=== PATIENT | male | born 1960 | race Caucasian/White ===

== ENCOUNTER 2018-11-08 12:45 | Emergency (ER) | payer MEDICARE, MEDICAID ==
[2018-11-08 13:18] VITALS: BP 166/77
[2018-11-08] MEDS ORDERED: Lidocaine 2.5%/Prilocain 2.5%* 5 GM TUBE TOPICAL ONE (13:27)
--- NOTE | 2018-11-08 13:34 | UC ---
Skin Complaint HPI - HPI Summary HPI Summary: Pt is accompanied by daughter and daughter in law. Pt states he felt something last night on right upper anterior thigh, daughter attempted to remove and was unable to remove last night. Pt and family are concerned that it is a tick. Pt c/o tenderness at bite site. - History of Current Complaint Chief Complaint: UCSkin Time Seen by Provider: 11/08/18 13:13 Stated Complaint: RIGHT LEG SKIN CONCERN - POSS TICK Hx Obtained From: Patient Onset/Duration: Sudden Onset, Still Present Skin Exposure Onset/Duration: Hours Ago Timing: Constant Onset Severity: Mild Current Severity: Mild Pain Intensity: 4 Location: Discrete - right mid anterior thigh Character: Raised, Painful Aggravating Factor(s): Touch Alleviating Factor(s): Nothing Associated Signs & Symptoms: Positive: Tenderness Related History: Insect Bite/Sting - concern for tick bite - Allergy/Home Medications Allergies/Adverse Reactions: Allergies Allergy/AdvReac Type Severity Reaction Status Date / Time ibuprofen Allergy Swelling Verified 11/08/18 13:11 [From Advil Cold and Sinus] Of Face,Lips,& Throat pseudoephedrine Allergy Swelling Verified 11/08/18 13:11 [From Advil Cold and Sinus] Of Face,Lips,& Throat Home Medications: Home Medications Albuterol HFA INHALER* [Ventolin HFA Inhaler*] 1 puff Q4HR PRN 11/08/18 [ History Confirmed 11/08/18] Aspirin EC TAB* [Ecotrin EC Low Dose 81 MG*] 81 mg PO DAILY 11/08/18 [History Confirmed 11/08/18] Citalopram TAB* [Celexa TAB*] 40 mg PO DAILY 11/08/18 [History Confirmed ] Gabapentin CAP(*) [Neurontin 100 mg CAP(*)] 100 mg DAILY 11/08/18 [History Confirmed 11/08/18] Isosorbide Dinitrate TAB* [Isordil TAB*] 10 mg PO DAILY 11/08/18 [History Confirmed 11/08/18] Liraglutide (NF) [Victoza (NF)] 11/08/18 [History] Losartan TAB* [Cozaar TAB*] 50 mg PO DAILY 11/08/18 [History Confirmed 11/08/18] Metolazone TAB* [Zaroxolyn TAB*] 5 mg DAILY 11/08/18 [History Confirmed 11/08/18 ] Torsemide TAB* [Demadex 20 MG*] 20 mg PO DAILY 11/08/18 [History Confirmed 11/08] amLODIPine TAB* [Norvasc 5 mg TAB*] 5 mg PO DAILY 11/08/18 [History Confirmed ] hydrALAZINE TAB* [Apresoline TAB*] 25 mg PO DAILY 11/08/18 [History Confirmed ] PMH/Surg Hx/FS Hx/Imm Hx Previously Healthy: Yes Endocrine History: Diabetes, Dyslipidemia Cardiovascular History: Cardiac Disease, Hypertension - Surgical History Surgical History: Yes Surgery Procedure, Year, and Place: appendix - Family History Known Family History: Positive: Cardiac Disease - Social History Occupation: Retired Lives: With Family Alcohol Use: None Substance Use Type: None Smoking Status (MU): Current Every Day Smoker Type: Cigarettes Amount Used/How Often: 1 PPD Have You Smoked in the Last Year: Yes Review of Systems All Other Systems Reviewed And Are Negative: Yes Constitutional: Positive: Negative Skin: Positive: Other - possible tick bite right anterior mid thigh Eyes: Positive: Negative ENT: Positive: Negative, Other - hard of hearing Respiratory: Positive: Negative Cardiovascular: Positive: Negative Gastrointestinal: Positive: Negative Genitourinary: Positive: Negative Motor: Positive: Negative Neurovascular: Positive: Negative Musculoskeletal: Positive: Negative Neurological: Positive: Negative Psychological: Positive: Negative Is Patient Immunocompromised?: No Physical Exam Triage Information Reviewed: Yes Appearance: Well-Appearing Vital Signs: Initial Vital Signs Temp 97.5 F 11/08/18 13:12 Pulse 76 11/08/18 13:12 Resp 16 11/08/18 13:12 BP 166/77 11/08/18 13:12 Pulse Ox 100 11/08/18 13:12 Vital Signs Reviewed: Yes Eye Exam: Normal ENT Exam: Other - hard of hearing Dental Exam: Normal Neck exam: Normal Respiratory Exam: Normal Respiratory: Positive: No respiratory distress Musculoskeletal Exam: Normal Neurological Exam: Normal Psychological Exam: Normal Skin Exam: Other - eraser size mild erythematous circular area wiht darkened center. Course/Dx - Differential Diagnoses - Skin Complaint Differential Diagnoses: Foreign Body, Tick Born Illness - Diagnoses Provider Diagnosis: Tick bite of right thigh Discharge - Sign-Out/Discharge Documenting (check all that apply): Patient Departure All imaging exams completed and their final reports reviewed: No Studies - Discharge Plan Condition: Stable Disposition: HOME Prescriptions: DOXYcycline CAP(*) [DOXYcycline 100MG CAP(*)] 200 mg PO ONCE #2 cap Patient Education Materials: Insect Bite or Sting (ED) Referrals: Juliana Carrasco [Primary Care Provider] - If Needed - Billing Disposition and Condition Condition: STABLE Disposition: Home
== END 2018-11-08 14:12 | disposition home or self-care (01) ==
LOC: UCCORT 12:45
DX: S70.361A Insect bite (nonvenomous), right thigh, initial encounter (principal); W57.XXXA Bitten or stung by nonvenomous insect and other nonvenomous arthropods, initial encounter; E11.9 Type 2 diabetes mellitus without complications; I11.9 Hypertensive heart disease without heart failure; E78.5 Hyperlipidemia, unspecified; F17.210 Nicotine dependence, cigarettes, uncomplicated; Z88.8 Allergy status to other drugs, medicaments and biological substances; Z79.82 Long term (current) use of aspirin
CPT/HCPCS: 99212; A9270-GY; G0463